=== PATIENT | male | born 1955 | race Caucasian/White ===

== ENCOUNTER 2019-11-14 11:04 | Inpatient (IN) | payer OTHER, SELFPAY ==
[~2019-11-14] VITALS: Ht 182.9 cm; Wt 117.9 kg
[~2019-11-14 11:04] MED LIST: ASPIR 8181 MG PO; CLARITIN10 MG PO; CRESTOR40 M1 PO; HYDROCHLOROTHIA25 MG PO; METOPROLOL TART50 MG PO; NOR10 PO; SPIRONOLACTONE100 MG PO; TRIAMCINOLONE ACETON INH
[2019-11-14 11:06] VITALS: Ht 182.9 cm; Wt 117.9 kg
[2019-11-14 11:44] LABS: BASOPHIL % 0.6 % (0-2); PLATELET COUNT 243 x10^3mcL (130-400)
[2019-11-14 11:56] LABS: CARBON DIOXIDE 24.9 mmol/L (21-32); CREATININE SERUM 1.3 mg/dL (0.7-1.3); POTASSIUM SERUM 3.9 mmol/L (3.5-5.1)
[2019-11-14 12:01] LABS: ALBUMIN 3.4 g/dL (3.4-5.0); BILIRUBIN TOTAL 0.35 mg/dL (0.20-1.00); C REACTIVE PROTEIN 0.5 mg/dL (<=0.9); TOTAL PROTEIN, SERUM 7.2 g/dL (6.4-8.2)
[2019-11-14 13:25] LABS: MAGNESIUM 1.8 mg/dL (1.8-2.4)
[2019-11-14 13:26] LABS: CHOLESTEROL/HDL RATIO 3.8
[2019-11-14 14:10] VITALS: BP 129/85
[2019-11-14 18:07] VITALS: BP 133/89
[2019-11-14 21:55] VITALS: BP 111/79
[2019-11-15 05:30] VITALS: BP 120/84
[2019-11-15 08:04] LABS: CALCIUM 8.8 mg/dL (8.5-10.1); CARBON DIOXIDE 27.2 mmol/L (21-32); CHLORIDE SERUM 104 mmol/L (98-107); CREATININE SERUM 1.2 mg/dL (0.7-1.3); GFR1 > 60 mL/min; GLUCOSE SERUM 108 mg/dL (74-106); POTASSIUM SERUM 4.4 mmol/L (3.5-5.1); SODIUM SERUM 138 mmol/L (136-145)
[2019-11-15 08:30] VITALS: BP 129/85
[2019-11-15 08:49] LABS: BASOPHIL % 0.6 % (0-2); PLATELET COUNT 227 x10^3mcL (130-400); RED CELL DISTRIBUTION WIDTH 12.9 % (11.5-14.5)
[2019-11-15 09:44] LABS: microscopic required? YES; urine erythrocyte TRACE (NEGATIVE)
[2019-11-15 09:45] LABS: AMPHETAMINE QUAL UR NONE DETECTED (See below)
[2019-11-15 12:30] VITALS: BP 119/84
[2019-11-15 17:05] VITALS: BP 133/79
[2019-11-15 20:05] VITALS: BP 133/79
[2019-11-15 20:30] VITALS: BP 124/75
== END 2019-11-16 01:00 | disposition other institution (70) | DRG 303 ==
LOC: ED 11:04 → DU 12:48
PROVIDERS: Emergency Medicine; ADMIT Internal Medicine
DX: I25.119 Atherosclerotic heart disease of native coronary artery with unspecified angina pectoris (principal); I25.2 Old myocardial infarction; I10 Essential (primary) hypertension; E78.5 Hyperlipidemia, unspecified; R09.1 Pleurisy; D35.00 Benign neoplasm of unspecified adrenal gland; Z20.828 Contact with and (suspected) exposure to other viral communicable diseases
CPT/HCPCS: 36600; 83880; 85378; 87804; G0378; Q0092